=== PATIENT | male | born 1970 | race Caucasian/White ===

== ENCOUNTER 2024-03-27 19:03 | Emergency (ER) | payer SELFPAY ==
[~2024-03-27] VITALS: Ht 170.2 cm; Wt 90.7 kg
[2024-03-27 19:10] VITALS: TEMP 98.3
[2024-03-27] MEDS ORDERED: diphenhydrAMINE HCL 50 MG CAPSULE ONE (19:50)
[2024-03-27] MEDS: diphenhydrAMINE HCL 50 MG CAPSULE PO ONE (19:53)
[2024-03-27] MEDS: IV NS 0.9% 1,000 ML BAG IV ONE (20:00)
[2024-03-27] MEDS: HYDROMORPHONE MDV 0.5 MG in IV D5W 50 ML IV ONE (20:05)
[2024-03-27 20:19] LABS: BASOPHILS % (AUTO) 0.2 % (0.0-2.0); HEMATOCRIT 30 % (39-51); HEMOGLOBIN 9.5 g/dL (13.5-17.5); LYMPHOCYTES # (AUTO) 0.2 K/uL (0.8-4.8); LYMPHOCYTES % (AUTO) 2.2 % (20.0-44.0); MEAN CORPUSCULAR HEMOGLOBIN 33 PG (26.0-33.0); MEAN CORPUSCULAR HGB CONC 32 g/dl (31.0-36.0); MEAN CORPUSCULAR VOLUME 102 fL (80-96); MONOCYTES # (AUTO) 0.6 K/uL (0.1-1.30); MONOCYTES % (AUTO) 5.3 % (2.0-12.0); NEUTROPHILS # (AUTO) 10.3 K/uL (1.8-8.9); NEUTROPHILS % (AUTO) 92.3 % (43.0-81.0); PLATELET COUNT (AUTO) 188 K/uL (150-450); RED BLOOD CELL COUNT(AUTO) 2.91 MIL/uL (4.5-6.0); WHITE BLOOD COUNT (AUTO) 11.2 K/uL (4.3-11.0)
[2024-03-27 20:36] LABS: APPEARANCE,URINE CLOUDY (CLEAR); BILIRUBIN,URINE 2+ (NEGATIVE); BLOOD, URINE 3+ Ery/uL (NEGATIVE); COLOR,URINE AMBER (YELLOW); KETONES,URINE TRACE mg/dL (NEGATIVE); LEUKOCYTE ESTERASE ,URINE 2+ (NEGATIVE); NITRITE, URINE POSITIVE (NEGATIVE); PH,URINE 8.5 (5.0-8.0); PROTEIN,URINE 3+ mg/dl (NEGATIVE); UGLUCOSE 2+ mg/dL (NEGATIVE)
[2024-03-27 20:43] LABS: ALBUMIN 3.7 g/dL (3.4-5.0); BILIRUBIN,DIRECT 0.1 mg/dL (0.0-0.2); BILIRUBIN,TOTAL 0.3 mg/dL (0.2-1.0); CALCIUM, SERUM 9.9 mg/dL (8.5-10.1); POTASSIUM 5.1 mmol/L (3.5-5.1); TOTAL PROTEIN, SERUM 6.8 g/dL (6.4-8.2)
[2024-03-27 20:45] LABS: CREATININE 7.6 mg/dL (0.6-1.3)
[2024-03-27 20:48] LABS: ADD URINE CULTURE YES; BACTERIA,URINE 3+ /HPF (None Seen); RBC,URINE 51-80 /HPF (0-2)
[2024-03-27] MEDS ORDERED: CIPR500S2 PO (20:52)
[2024-03-27 21:18] VITALS: BP 135/85; O2SAT 97
== END 2024-03-27 21:00 | disposition home or self-care (01) ==
LOC: ER 19:29
DX: N19 Unspecified kidney failure (principal); N39.0 Urinary tract infection, site not specified; D64.9 Anemia, unspecified; I10 Essential (primary) hypertension; R31.9 Hematuria, unspecified; R74.8 Abnormal levels of other serum enzymes; Z88.5 Allergy status to narcotic agent
CPT/HCPCS: 99285; 74176; 96365; 85025; 80048; 87086; 83690; 80076; 81001; 36415; J1171; Q0163; J7060; J7030